=== PATIENT | female | born 1985 | race Caucasian/White ===

== ENCOUNTER 2022-01-01 15:32 | Emergency (ER) | payer BC ==
[2022-01-01 16:07] VITALS: RESP 16
--- NOTE | 2022-01-01 20:30 | ED ---
General Adult HPI - General Chief complaint: Recheck/Abnormal Lab/Rx Stated complaint: 24 wks preg, low hemoglobin, Mother Baby notified Time Seen by Provider: 01/01/22 19:49 Source: patient, RN notes reviewed Mode of arrival: ambulatory Limitations: no limitations - History of Present Illness Initial comments: This is a pleasant 36-year-old female who is 24 weeks . She was sent in by her lens edge grinder machine, Dr. Johns, for low hemoglobin. Patient states it was 7 at the office. Patient sent here for probable blood transfusion. Patient denying any pain but does have fatigue. Patient also easily winded with exertion. Denies any vaginal bleeding. No rectal bleeding. No easy bruising. No nosebleeds. Patient does have a history of anemia and cannot take iron supplementation because of her gastroesophageal reflux disease. Patient is angelina eduled later in the week for iron infusion. Patient can feel movements. She denies any vaginal discharge or vaginal leakage. No abdominal or pelvic pain. No headache, no fever or chills, no changes in vision or hearing, no sore throat or difficulty with speech, no neck pain, no chest pain or shortness of breath, no abdominal pain, no nausea or vomiting, no changes in urination or bowel m ovements, no numbness or tingling, no extremity pain, no skin rashes or lesions. Past medical, surgical, social, and family history reviewed. - Related Data Allergies Allergy/AdvReac Type Severity Reaction Status Date / Time butorphanol [From Stadol] Allergy Unknown Verified 01/01/22 16:07 diphenhydramine Allergy Unknown Verified 01/01/22 16:07 [From Benadryl] Review of Systems ROS Statement: Those systems with pertinent positive or pertinent negative responses have been documented in the HPI. ROS Other: All systems not noted in ROS Statement are negative. Past Medical History Additional Past Medical History / Comment(s): anemia, History of Any Multi-Drug Resistant Organisms: None Reported Past Surgical History: Breast Surgery Additional Past Surgical History / Comment(s): tumor removed from breast Past Psychological History: No Psychological Hx Reported Smoking Status: Never smoker Past Alcohol Use History: None Reported Past Drug Use History: None Reported General Exam - General Exam Comments Initial Comments: This is a pleasant 36-year-old female who appears to be in no distress at the time I'm seeing her. Patient does have a gravid uterus consistent with dates. Patient does have a bit of pallor. Capillary refill is less than 2 seconds. No mottling. Limitations: no limitations General appearance: alert, in no apparent distress Head exam: Present: atraumatic, normocephalic, normal inspection Eye exam: Present: normal appearance, PERRL, EOMI. Absent: scleral icterus, conjunctival injection, periorbital swelling ENT exam: Present: normal exam, normal oropharynx, mucous membranes moist, normal external ear exam. Absent: mucous membranes dry Neck exam: Present: normal inspection, full ROM. Absent: tenderness, meningismus, lymphadenopathy Respiratory exam: Present: normal lung sounds bilaterally. Absent: respiratory distress, wheezes, rales, rhonchi, stridor Cardiovascular Exam: Present: regular rate, normal rhythm, normal heart sounds. Absent: systolic murmur, diastolic murmur, rubs, gallop, clicks GI/Abdominal exam: Present: soft, normal bowel sounds, other (Gravid uterus, consistent with dates). Absent: distended, tenderness, guarding, rebound, rigid Extremities exam: Present: normal inspection, full ROM, normal capillary refill. Absent: tenderness, pedal edema, joint swelling, calf tenderness Back exam: Present: normal inspection Neurological exam: Present: alert, oriented X3, CN II-XII intact Psychiatric exam: Present: normal affect, normal mood Skin exam: Present: warm, dry, intact, normal color, pallor (Generalized). Absent: rash, cyanosis, diaphoretic, erythema, urticaria, vesicles, petechiae, mottled Course Vital Signs 01/01/22 01/01/22 01/01/22 16:04 22:40 22:52 Temperature 97.9 F 98.1 F 97.8 F Pulse Rate 91 81 80 Respiratory 16 16 16 Rate Blood Pressure 104/66 112/68 101/58 O2 Sat by Pulse 99 97 Oximetry 01/01/22 01/02/22 01/02/22 23:12 01:13 01:17 Temperature 97.5 F L 98.3 F 98.3 F Pulse Rate 80 65 65 Respiratory 16 16 16 Rate Blood Pressure 102/67 105/64 O2 Sat by Pulse 97 100 Oximetry - Consultations Consultation #1: Case was discussed in detail with the on-call lens edge grinder machine, Dr. Arana who was in contact with Dr. Johns. Apparently the patient's lens edge grinder machine, Dr. Johns, once the patient transfused with 1 unit packed red blood cells due to symptomatic anemia. [address] Johns. Medical Decision Making - Medical Decision Making Will recheck hemoglobin. Plan on transfusion. We'll touch base with the lens edge grinder machine. Patient received one unit of packed red blood cells as requested by Dr. Johns. Patient was hemodynamically stable at discharge. Patient has a follow-up appointment scheduled with your lens edge grinder machine on Thursday. All results discussed. Patient was told to return to the ER for any signs or symptoms worsen. Told to return immediately if any other problems arise. All questions answered. Treatment plan discussed. Patient in agreement Every effort has been made to ensure accuracy of this dictation. However, due to the limitations of electronic medical records and dictation devices, errors in charting still occur. The case was discussed in detail with ED attending physician. Presentation, findings, treatment plan discussed in detail. Pharmacist In Charge Owner Dr. Reyes - Lab Data Result diagrams: 01/01/22 20:00 01/01/22 20:00 Lab Results 01/01/22 01/01/22 01/01/22 Range/Units 20:00 20:00 20:00 WBC 14.5 H (3.8-10.6) k/uL RBC 3.39 L (3.80-5.40) m/uL Hgb 7.8 L (11.4-16.0) gm/dL Hct 25.4 L (34.0-46.0) % MCV 74.9 L (80.0-100.0) fL MCH 23.0 L (25.0-35.0) pg MCHC 30.8 L (31.0-37.0) g/dL RDW 14.7 (11.5-15.5) % Plt Count 542 H (150-450) k/uL MPV 6.9 Neutrophils % 75 % Lymphocytes % 17 % Monocytes % 4 % Eosinophils % 2 % Basophils % 0 % Neutrophils # 10.9 H (1.3-7.7) k/uL Lymphocytes # 2.5 (1.0-4.8) k/uL Monocytes # 0.5 (0-1.0) k/uL Eosinophils # 0.3 (0-0.7) k/uL Basophils # 0.0 (0-0.2) k/uL Hypochromasia Marked Microcytosis Slight Sodium 135 L (137-145) mmol/L Potassium 3.7 (3.5-5.1) mmol/L Chloride 106 (98-107) mmol/L Carbon Dioxide 19 L (22-30) mmol/L Anion Gap 10 mmol/L BUN 13 (7-17) mg/dL Creatinine 0.53 (0.52-1.04) mg/dL Est GFR (CKD-EPI)AfAm >90 (>60 ml/min/1.73 sqM) Est GFR (CKD-EPI)NonAf >90 (>60 ml/min/1.73 sqM) Glucose 94 (74-99) mg/dL Calcium 8.7 (8.4-10.2) mg/dL Total Bilirubin 0.3 (0.2-1.3) mg/dL AST 23 (14-36) U/L ALT 16 (4-34) U/L Alkaline Phosphatase 76 (38-126) U/L Total Protein 6.6 (6.3-8.2) g/dL Albumin 3.8 (3.5-5.0) g/dL Urine Color Urine Appearance (Clear) Urine pH (5.0-8.0) Ur Specific York (1.001-1.035) Urine Protein (Negative) Urine Glucose (UA) (Negative) Urine Ketones (Negative) Urine Blood (Negative) Urine Nitrite (Negative) Urine Bilirubin (Negative) Urine Urobilinogen (<2.0) mg/dL Ur Leukocyte Esterase (Negative) Blood Type O Positive Blood Type Confirm Blood Type Recheck No Previous Record Bld Type Recheck Status CABO Indicated Antibody Screen NEGATIVE Crossmatch See Detail Spec Expiration Date 01/04/2022 - 229901/01/22 01/01/22 Range/Units 20:05 20:06 WBC (3.8-10.6) k/uL RBC (3.80-5.40) m/uL Hgb (11.4-16.0) gm/dL Hct (34.0-46.0) % MCV (80.0-100.0) fL MCH (25.0-35.0) pg MCHC (31.0-37.0) g/dL RDW (11.5-15.5) % Plt Count (150-450) k/uL MPV Neutrophils % % Lymphocytes % % Monocytes % % Eosinophils % % Basophils % % Neutrophils # (1.3-7.7) k/uL Lymphocytes # (1.0-4.8) k/uL Monocytes # (0-1.0) k/uL Eosinophils # (0-0.7) k/uL Basophils # (0-0.2) k/uL Hypochromasia Microcytosis Sodium (137-145) mmol/L Potassium (3.5-5.1) mmol/L Chloride (98-107) mmol/L Carbon Dioxide (22-30) mmol/L Anion Gap mmol/L BUN (7-17) mg/dL Creatinine (0.52-1.04) mg/dL Est GFR (CKD-EPI)AfAm (>60 ml/min/1.73 sqM) Est GFR (CKD-EPI)NonAf (>60 ml/min/1.73 sqM) Glucose (74-99) mg/dL Calcium (8.4-10.2) mg/dL Total Bilirubin (0.2-1.3) mg/dL AST (14-36) U/L ALT (4-34) U/L Alkaline Phosphatase (38-126) U/L Total Protein (6.3-8.2) g/dL Albumin (3.5-5.0) g/dL Urine Color Yellow Urine Appearance Clear (Clear) Urine pH 6.0 (5.0-8.0) Ur Specific York 1.028 (1.001-1.035) Urine Protein Trace H (Negative) Urine Glucose (UA) Negative (Negative) Urine Ketones Negative (Negative) Urine Blood Negative (Negative) Urine Nitrite Negative (Negative) Urine Bilirubin Negative (Negative) Urine Urobilinogen <2.0 (<2.0) mg/dL Ur Leukocyte Esterase Negative (Negative) Blood Type Blood Type Confirm O Positive Blood Type Recheck Bld Type Recheck Status Antibody Screen Crossmatch Spec Expiration Date Disposition Clinical Impression: , Anemia affecting Narrative: Chronic iron deficiency anemia Disposition: HOME SELF-CARE Condition: Stable Instructions (If sedation given, give patient instructions): (ED), I waldo Rich Diet (ED) Additional Instructions: Follow-up with Dr. Johns. Follow-up with your regular physician as directed. Return to the ER immediately if any symptoms worsen, new symptoms arise, or any other problems develop. Is patient prescribed a controlled substance at d/c from ED?: No Referrals: Akosua Johns DO [Doctor of Osteopathic Medicine] - 1-2 days
[2022-01-01 20:34] LABS: Basophils % (A) 0 %; Eosinophils # (A) 0.3 k/uL (0-0.7); Eosinophils % (A) 2 %; HCT 25.4 % (34.0-46.0); HGB 7.8 gm/dL (11.4-16.0); Hypochromasia Marked; Lymphocytes # (A) 2.5 k/uL (1.0-4.8); Lymphocytes % (A) 17 %; MCHC 30.8 g/dL (31.0-37.0); MCV 74.9 fL (80.0-100.0); Mean Platelet Volume 6.9; Microcytosis Slight; Monocytes # (A) 0.5 k/uL (0-1.0); Monocytes % (A) 4 %; Neutrophils # (A) 10.9 k/uL (1.3-7.7); Neutrophils % (A) 75 %; Platelet Count 542 k/uL (150-450); RBC 3.39 m/uL (3.80-5.40); RDW 14.7 % (11.5-15.5); WBC 14.5 k/uL (3.8-10.6)
[2022-01-01 20:49] LABS: Appearance,Urine Clear (Clear); Bilirubin,Urine Negative (Negative); Blood,Urine Negative (Negative); Color,Urine Yellow; Glucose,Urine (UA) Negative (Negative); Ketones,Urine Negative (Negative); Leukocyte Esterase,Urine Negative (Negative); Nitrite,Urine Negative (Negative); Protein,Urine Trace (Negative); Specific Gravity,Urine 1.028 (1.001-1.035); Urobilinogen,Urine <2.0 mg/dL (<2.0)
[2022-01-01 20:58] LABS: ALT 16 U/L (4-34); AST 23 U/L (14-36); African American GFR (CKD) >90 (>60 ml/min/1.73 sqM); Albumin 3.8 g/dL (3.5-5.0); Alkaline Phosphatase 76 U/L (38-126); Anion Gap 10 mmol/L; Blood Urea Nitrogen 13 mg/dL (7-17); Calcium 8.7 mg/dL (8.4-10.2); Carbon Dioxide 19 mmol/L (22-30); Chloride 106 mmol/L (98-107); Glucose 94 mg/dL (74-99); Non-African American GFR(CKD) >90 (>60 ml/min/1.73 sqM); Potassium 3.7 mmol/L (3.5-5.1); Sodium 135 mmol/L (137-145); Total Bilirubin 0.3 mg/dL (0.2-1.3); Total Protein 6.6 g/dL (6.3-8.2)
[2022-01-02 01:17] VITALS: BP 105/64; PULSE 65; TEMP 98.3
== END 2022-01-02 01:17 | disposition home or self-care (01) ==
LOC: EC 15:32
DX: O99.011 Anemia complicating pregnancy, first trimester (principal); D64.9 Anemia, unspecified; Z88.8 Allergy status to other drugs, medicaments and biological substances; Z88.6 Allergy status to analgesic agent; Z3A.29 29 weeks gestation of pregnancy
CPT/HCPCS: 36415; 86900; 86901; 80053; 85025; 86850; 86920; 81003; 99283; P9016

== ENCOUNTER 2022-01-17 12:27 | Outpatient (CLI) | payer BC ==
[2022-01-17 16:31] VITALS: BP 106/58; RESP 16; TEMP 98.3
--- NOTE | 2022-01-18 09:13 | P.MSEPDOC ---
Presenting Problems - Arrival Data Date of Arrival on Unit: 01/17/22 Time of Arrival on Unit: 12:27 Mode of Transport: Wheelchair - Complaint OB-Reason for Admission/Chief Complaint: Other Comment: dizziness Medical History - Information : 4 Para: 1 Term: 1 : 0 Abortions: Spontaneous or Elective: 2 Number of Living Children: 1 - Gestational Age Gestational Age by PRERNA (wks/days): 26 Weeks and 6 Days Review of Systems - Review of Systems Constitutional: No problems Breast: No problems ENT: No problems Cardiovascular: No problems Respiratory: No problems Gastrointestinal: No problems Genitourinary: No problems Musculoskeletal: No problems Neurological: No problems Skin: No problems Vital Signs - Temperature Temperature: 98.3 F Temperature Source: Oral - Respirations Respiratory Rate: 16 Oxygen Delivery Method: Room Air O2 Sat by Pulse Oximetry: 98 - Blood Pressure Left Arm Blood Pressure: 106/58 Blood Pressure Mean: 74 Blood Pressure Source: Automatic Cuff Medical Screen Scoring - Assessment - Baby A Baseline FHR: 145 Heart Rate - NICHD Category: Category I (Normal) Physician Notification - Physician Notified Physician Notified Date: 01/17/22 Physician Notified Time: 13:10 Physician: Dr Arana New Order Received: Yes (discharge) Maternal Triage Index - Maternal Triage Index Presenting for scheduled procedure w/no complaint: No - Stat/Priority 1 Stat Priority 1: No - Urgent/Priority 2 Urgent Priority 2: No - Prompt/Priority 3 Prompt Priority 3: No - Non-Urgent/Priority 4 Non-Urgent Priority 4: Yes Criteria Met for Priority 4: presents with dizziness with know anemia after iron transfusion Disposition - Disposition OB Disposition: Discharge to home Discharge Date: 01/17/22 Discharge Time: 13:40 I agree with the RN Medical Screening Exam: Yes Case reviewed; plan agreed upon as documented in EMR&OBIX.: Yes Diagnosis: RELATED CONDITIONS, UNSPECIFIED, SECOND TRIMESTER (Patient presents to labor and delivery with complaints of general ill feeling, fatigue, dizziness while she was at the suede cleaner getting an iron infusion. This is been a chronic condition for this patient and it appears she has no new symptomatology. Patient's hemoglobin is already been checked and its good at 9.2. heart tones are reassuring. There is no evidence of maternal compromise at this time. Patient's felt be stable for discharge home follow up Dr. Johns in the next 2 weeks.)
== END 2022-01-17 13:40 | disposition home or self-care (01) ==
LOC: FBPOP 12:27
PROVIDERS: ATTEND Obstetrics & Gynecology
DX: O26.892 Other specified pregnancy related conditions, second trimester (principal); Z3A.26 26 weeks gestation of pregnancy; Z88.8 Allergy status to other drugs, medicaments and biological substances
CPT/HCPCS: 99213

== ENCOUNTER 2022-04-03 23:33 | Inpatient (IN) | payer BC ==
[2022-04-04] MEDS ORDERED: CITRIC ACID-SODIUM CITRATE 15 ML CUP PO ONE (00:06)
[2022-04-04 00:34] LABS: Glucose,Whole Blood 79 mg/dL (70-110)
[2022-04-04 00:42] LABS: Anisocytosis Moderate; Basophils % (A) 0 %; Eosinophils # (A) 0.2 k/uL (0-0.7); Eosinophils % (A) 2 %; HCT 36.3 % (34.0-46.0); Lymphocytes # (A) 2.2 k/uL (1.0-4.8); Lymphocytes % (A) 18 %; MCH 28.4 pg (25.0-35.0); MCHC 33.1 g/dL (31.0-37.0); MCV 85.7 fL (80.0-100.0); Mean Platelet Volume 8.1; Microcytosis Slight; Monocytes # (A) 0.7 k/uL (0-1.0); Monocytes % (A) 6 %; Neutrophils # (A) 8.9 k/uL (1.3-7.7); Neutrophils % (A) 73 %; Platelet Count 337 k/uL (150-450); RBC 4.24 m/uL (3.80-5.40); RDW 20.1 % (11.5-15.5); WBC 12.2 k/uL (3.8-10.6)
--- NOTE | 2022-04-04 00:49 | P.HPOB ---
History of Present Illness H&P Date: 04/04/22 Chief Complaint: Spontaneous rupture of membranes This is a 36-year-old female 4 para 1 with an EDC of 04/19/2022, estimated gestational age of 38 weeks, who presents with complaints of spontaneous rupture of membranes with clear fluid noted at approximately 11:15 PM on 04/03/2022. She is feeling mild contractions at this time. care has been with Dr. Johns and has been complicated by low iron and low blood sugar. She has had a total of 10 iron infusions and one unit of blood. She also takes Zofran for nausea. She is a planned scheduled primary section due to macrosomia on recent ultrasound on 1227 showing estimated weight of 9 pounds with greater than 90th percentile. She did discuss this with Dr. Johns in the head plan for primary section for prevention of shoulder dystocia. labs: Hepatitis B surface antigen-negative RPR-nonreactive Rubella-immune Blood type-O+ Antibody screen-negative HIV-nonreactive Hemoglobin-10.4 Random glucose-72 Maternity 21-negative One hour Glucola-100, hemoglobin at that time was 7 Group B streptococcus-negative Obstetrical history: . History of 2 terminations of . History of 1 vaginal delivery at 39 weeks with a weight of 6 lbs. 11 oz. 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 Social history: . Works from home. Review of Systems Constitutional: Denies chills, Denies fever Eyes: denies blurred vision, denies pain Ears, nose, mouth and throat: Denies headache, Denies sore throat Cardiovascular: Denies chest pain, Denies shortness of breath Respiratory: Denies cough Gastrointestinal: Reports abdominal pain (Contractions), Reports heartburn, Reports nausea Genitourinary: Reports pelvic pain, Reports , Reports vaginal discharge (Rupture of membranes with clear fluid) Musculoskeletal: Reports low back pain Integumentary: Denies pruritus, Denies rash Neurological: Denies numbness, Denies weakness Psychiatric: Denies anxiety, Denies depression Past Medical History Past Medical History: GERD/Reflux, Hyperlipidemia Additional Past Medical History / Comment(s): Iron deficiency anemia-required iron transfusions during this , hypoglycemia History of Any Multi-Drug Resistant Organisms: None Reported Past Surgical History: Breast Surgery Additional Past Surgical History / Comment(s): Benign tumor removed from breast, wisdom teeth Past Anesthesia/Blood Transfusion Reactions: No Reported Reaction Past Psychological History: No Psychological Hx Reported Smoking Status: Never smoker Past Alcohol Use History: None Reported Past Drug Use History: None Reported - Past Family History Father Family Medical History: Hypertension Mother Family Medical History: Cancer (Thyroid cancer) Brother(s) Additional Family Medical History / Comment(s): Ulcerative colitis Medications and Allergies Home Medications Medication Instructions Recorded Confirmed Type Ascorbic Acid [Vitamin C chew] 1,000 mg PO DAILY 01/13/22 04/03/22 History Biotin [Biotin Disolve] 5,000 mcg PO DAILY 01/13/22 04/03/22 History Pantoprazole [Protonix] 40 mg PO DAILY 01/13/22 04/03/22 History Vit No.179/Iron/Folic 1 each PO DAILY 01/13/22 04/03/22 History [ Tablet] Allergies Allergy/AdvReac Type Severity Reaction Status Date / Time butorphanol [From Stadol] Allergy Hallucinati Verified 04/03/22 23:55 ons diphenhydramine Allergy Hallucinati Verified 04/03/22 23:55 [From Benadryl] ons Exam Osteopathic Statement: *. No significant issues noted on an osteopathic structural exam other than those noted in the History and Physical/Consult. Intake and Output 04/03/22 04/03/22 04/04/22 14:59 22:59 06:59 Other: Weight 69.4 kg HEENT: Within normal limits Heart: Regular rate and rhythm Lungs clear to auscultation bilaterally Abdomen: Cervix: 1-1/2/thick/-2, positive amnisure with clear fluid noted heart tones: Category 1, reactive Contractions: Every 2-4 minutes, mild Extremities: Negative Homans Assessment and Plan (1) 38 weeks gestation of Current Visit: Yes Status: Acute Code(s): Z3A.38 - 38 WEEKS GESTATION OF SNOMED Code(s): 54015961 (2) Macrosomia affecting management of mother in third trimester, single gestation Current Visit: Yes Status: Acute Code(s): O36.63X0 - MATERNAL CARE FOR EXCESS GROWTH, THIRD TRIMESTER, UNSP SNOMED Code(s): 776161859 Plan: Admission for primary section. Patient did eat some toast with some butter and therefore will try to wait closer to 8 hours before performing as long as she is not going into active labor. Will check blood sugar and CBC. Patient states she is unable to take oral medications for pain at all due to her GERD. Advised I will try to make her as comfortable as possible with IV medications immediately following surgery. I have discussed the risks, benefits, and alternative therapies for the above- mentioned procedure and for both sedation/anesthesia as well as necessary blood products administration, if indicated, as they pertain to this patient. The patient has indicated her understanding and acceptance of the risks and procedures discussed.
[2022-04-04] MEDS: LACTATED RINGERS 1,000 ML IV SCH ×3 (01:38→19:44)
[2022-04-04] MEDS ORDERED: fentaNYL (PF) 50 MCG/ML 2 ML AMP ONE (04:36)
[2022-04-04] MEDS ORDERED: OXYTOCIN 30 UNITS/500 ML NS BAG IV ONE (04:36)
[2022-04-04] MEDS ORDERED: KETOROLAC 15 MG/ML 1 ML VIAL ONE (04:36)
[2022-04-04] MEDS ORDERED: ONDANSETRON 4 MG/2 ML VIAL ONE (04:36)
[2022-04-04] MEDS ORDERED: MORPHINE SULFATE (PF) 0.3 MG/0.3 ML SYR ONE (04:36)
[2022-04-04] MEDS ORDERED: NALBUPHINE 10 MG/ML (1 ML AMP) ONE (04:36)
[2022-04-04] MEDS ORDERED: ePHEDrine 50 MG/ML 1 ML VIAL ONE (04:36)
--- NOTE | 2022-04-04 05:35 | P.OP ---
Date of Procedure: 04/04/22 Preoperative Diagnosis: 1. Intrauterine at 38-0/7 weeks. 2. Suspected macrosomia. 3. Active labor. Postoperative Diagnosis: Same Procedure(s) Performed: Primary low transverse section Anesthesia: spinal (Duramorph) Surgeon: Rosemary Real Hand Candy Cutter #1: Akosua Johns Estimated Blood Loss (ml): 500 Pathology: none sent Condition: stable Disposition: floor Indications for Procedure: This is a 36-year-old female 4 para 1 at 38-0/7 weeks who presented with spontaneous rupture of membranes. She then progressed into active labor. She was a planned section for macrosomia. I have discussed the risks, benefits, and alternative therapies for the above- mentioned procedure and for both sedation/anesthesia as well as necessary blood products administration, if indicated, as they pertain to this patient. The patient has indicated her understanding and acceptance of the risks and procedures discussed. Operative Findings: A viable male is noted in the vertex presentation with scores of 9 at 1 minute and 9 at 5 minutes and infant weight of 8 lbs. 3 oz. Normal uterus tubes and ovaries are noted. Description of Procedure: The patient is taken to the operating room where she is placed in the dorsal supine position with leftward tilt after spinal Duramorph anesthesia is given. She is prepped and draped in the normal sterile fashion. Skin was tested and found to be adequately anesthetized. A Pfannenstiel skin incision was made with a scalpel. A second knife was used to carry the incision down to the underlying layer of fascia. The fascia was nicked in the midline with a scalpel and then extended laterally bilaterally with Fernandez scissors. The anterior lip of the fascia was grasped with 2 Gurpreet clamps and then dissected off the underlying rectus muscle in the midline with Fernandez scissors. The inferior aspect of the fascial incision was grasped with 2 Gurpreet clamps and dissected off the underlying rectus muscle and the midline with Fernandez scissors. Next the peritoneum layer was tented up with 2 hemostats and then entered sharply with the scalpel. The incision is extended superiorly and inferiorly with Metzenbaum scissors. Next a DeLee retractor is placed. The vesicouterine peritoneum is entered sharply with Metzenbaum scissors and extended laterally bilaterally with Metzenbaum scissors and then the bladder flap is pushed inferiorly. The lower uterine segment is incised in transverse fashion with the scalpel and then bluntly entered with a hemostat. Clear fluid is noted. The incision was then extended laterally bilaterally with 2 fingers. Next the infant's head is delivered through the incision. Nose and mouth are bulb suctioned. The remainder of the infant is easily delivered and placed on mother's abdomen. Cord is clamped and cut. Infant is taken to warmer by nursing staff. Uterine fundus is gently massaged and placenta is delivered manually. Uterus is exteriorized and cleared of all clots and debris. Uterine incision is closed with 0 Vicryl suture in a running locked fashion. A second layer of 0 Vicryl suture is used in a running fashion for hemostasis. Once adequate hemostasis as assured, the vesicouterine peritoneum is reapproximated with 2-0 Vicryl suture in a running fashion. Posterior cul-de-sac is suctioned of all clots and debris. Uterus is returned to the abdomen. Incision is noted to be hemostatic. Peritoneal layer is closed with 0 Vicryl suture in a running fashion. Muscle layer is reapproximated with 0 Vicryl suture in interrupted fashion. Fascia layer is then closed with 0 PDS suture with 2 sutures meeting in the midline and the knots buried in either side and in the midline. The subcutaneous tissue was then closed with 2-0 Vicryl suture. Skin layer was then closed with ba. All sponge and needle counts are correct. The patient is taken to recovery room in stable condition.
[2022-04-04] MEDS ORDERED: LANOLIN CREAM 5 GM TUBE TOPICAL PRN (06:20)
[2022-04-04] MEDS ORDERED: OXYTOCIN 30 UNITS/500 ML NS 30 UNIT in SALINE 1 500ML.BAG IV SCH (06:20)
[2022-04-04] MEDS ORDERED: ZOLPIDEM 5 MG TAB PO PRN (06:20)
[2022-04-04] MEDS ORDERED: METOCLOPRAMIDE 5 MG/ML 2 ML VIAL IVP PRN (06:20)
[2022-04-04] MEDS ORDERED: HYDROmorphone 1 MG/ML 1 ML SYRINGE IVP PRN (06:20)
[2022-04-04] MEDS ORDERED: HYDROmorphone 0.5 MG/0.5 ML SYRINGE IVP PRN (06:20)
[2022-04-04] MEDS ORDERED: SIMETHICONE 80 MG CHEWABLE PO PRN (06:20)
[2022-04-04] MEDS ORDERED: NALOXONE 0.4 MG/ML 1 ML VIAL IV PRN (06:20)
[2022-04-04] MEDS: ACETAMINOPHEN IV (For NPO) 1,000 MG in EMPTY BAG 1 BAG IVPB SCH ×2 (08:16→21:17)
[2022-04-04] MEDS ORDERED: NON FORMULARY DRUG (Biotin [Biotin Disolve] 5,000 MCG Tablet) PO SCH (09:00)
[2022-04-04] MEDS: ONDANSETRON 4 MG/2 ML VIAL IVP PRN ×2 (09:10→16:15)
[2022-04-04] MEDS ORDERED: ONDANSETRON 4 MG/2 ML VIAL IVP PRN (16:10)
[2022-04-04] MEDS: PANTOPRAZOLE 40 MG TABLET PO SCH (21:16)
[2022-04-04] MEDS: SENNOSIDES-DOCUSATE SODIUM 1 EACH TAB PO SCH (21:16)
[2022-04-04] MEDS: KETOROLAC 15 MG/ML 1 ML VIAL IVP SCH (21:17)
[2022-04-04] MEDS: PRENATAL VIT-IRON-FOLIC ACID 1 EACH TABLET PO SCH (21:17)
[2022-04-04] MEDS: ASCORBIC ACID 500 MG TAB PO SCH (21:17)
[2022-04-05] MEDS: KETOROLAC 15 MG/ML 1 ML VIAL IVP SCH ×2 (00:54→07:59)
[2022-04-05 06:23] LABS: Anisocytosis Moderate; Basophils % (A) 0 %; Eosinophils % (A) 0 %; HCT 31.8 % (34.0-46.0); HGB 10.6 gm/dL (11.4-16.0); Lymphocytes # (A) 1.4 k/uL (1.0-4.8); Lymphocytes % (A) 9 %; MCHC 33.3 g/dL (31.0-37.0); MCV 87.1 fL (80.0-100.0); Mean Platelet Volume 8.2; Microcytosis Slight; Monocytes # (A) 0.8 k/uL (0-1.0); Monocytes % (A) 5 %; Neutrophils # (A) 12.9 k/uL (1.3-7.7); Neutrophils % (A) 84 %; Platelet Count 299 k/uL (150-450); RBC 3.65 m/uL (3.80-5.40); WBC 15.3 k/uL (3.8-10.6)
--- NOTE | 2022-04-05 07:25 | P.PNOBGPC ---
Subjective - Subjective Principal diagnosis: status post primary low transverse postop day 1 Interval history: patient seen and examined. Denies nausea, vomiting, chest pain, shortness of breath or calf pain. Patient reports: Reports appetite normal, Reports voiding normally, Reports pain well controlled, Reports ambulating normally : doing well Objective - Vital Signs Latest vital signs: Vital Signs Temp Pulse Resp BP Pulse Ox 04/05/22 04:00 98.4 F 80 14 115/74 96 04/05/22 00:00 98 F 72 16 110/68 96 04/04/22 19:46 98.4 F 71 16 112/69 96 04/04/22 15:11 97.7 F 66 16 120/68 96 04/04/22 11:40 97.8 F 64 16 133/77 04/04/22 07:54 97.6 F 75 16 112/60 04/04/22 07:42 97.6 F 78 16 112/60 96 Intake and Output 04/04/22 04/05/22 04/05/22 22:59 06:59 14:59 Output Total 1200 Balance -1200 Output: Urine 1200 Uretheral (Barton) 400 Other: # Voids 1 1 - Exam Lungs: bilateral: normal Chest: Normal S1, Normal S2 Extremities: Present: normal Abdomen: Present: normal appearance, soft. Absent: distention, tenderness Incision: Present: normal, dry, intact Uterus: Present: normal, firm - Labs Labs: Abnormal Lab Results - Last 24 Hours (Table) 04/05/22 Range/Units 05:13 WBC 15.3 H (3.8-10.6) k/uL RBC 3.65 L (3.80-5.40) m/uL Hgb 10.6 L (11.4-16.0) gm/dL Hct 31.8 L (34.0-46.0) % RDW 20.0 H (11.5-15.5) % Neutrophils # 12.9 H (1.3-7.7) k/uL Assessment and Plan (1) Status post primary low transverse section Current Visit: Yes Status: Acute Code(s): Z98.891 - HISTORY OF UTERINE SCAR FROM PREVIOUS SURGERY SNOMED Code(s): 343193810 Plan: 1. Increase ambulation 2. By mouth pain medication 3. Regular diet
[2022-04-05] MEDS: LACTATED RINGERS 1,000 ML IV SCH (07:58)
[2022-04-05] MEDS: ASCORBIC ACID 500 MG TAB PO SCH (08:05)
[2022-04-05] MEDS: IBUPROFEN 600 MG TAB PO SCH ×2 (08:05→19:21)
[2022-04-05] MEDS: SENNOSIDES-DOCUSATE SODIUM 1 EACH TAB PO SCH ×2 (08:05→19:21)
[2022-04-05] MEDS: PRENATAL VIT-IRON-FOLIC ACID 1 EACH TABLET PO SCH (08:05)
[2022-04-05] MEDS: PANTOPRAZOLE 40 MG TABLET PO SCH (08:05)
[2022-04-05] MEDS: ACETAMINOPHEN TAB 500 MG TAB PO SCH ×3 (12:17→22:46)
[2022-04-05] MEDS: ACETAMINOPHEN SUPPOSITORY 650 MG SUPP RECTAL PRN ×2 (16:30→23:01)
[2022-04-05 23:39] VITALS: RESP 16
[2022-04-06] MEDS: IBUPROFEN 600 MG TAB PO SCH ×2 (02:12→08:13)
[2022-04-06] MEDS: ACETAMINOPHEN TAB 500 MG TAB PO SCH (04:21)
[2022-04-06] MEDS: ACETAMINOPHEN SUPPOSITORY 650 MG SUPP RECTAL PRN (05:13)
[2022-04-06 08:11] VITALS: BP 120/82; PULSE 73; TEMP 97.9
[2022-04-06] MEDS: SENNOSIDES-DOCUSATE SODIUM 1 EACH TAB PO SCH (08:13)
[2022-04-06] MEDS: PANTOPRAZOLE 40 MG TABLET PO SCH (08:13)
--- NOTE | 2022-04-06 08:16 | P.PN ---
Progress Note - Text Date: 04/05/2022 Time: 07:49 The patient is status post section Vital signs stable VAS: 0-10 Patient has no complaints of pain. The patient incurred some minimal itching yesterday, this itching is now subsiding. She also had some nausea that is also now subsiding. Pain meds to be managed by service.
--- NOTE | 2022-04-06 08:57 | P.DS ---
Providers Date of admission: 04/04/22 00:05 Expected date of discharge: 04/06/22 Attending physician: Akosua Johns Primary care physician: Stated None - Discharge Diagnosis(es) (1) Status post primary low transverse section Current Visit: Yes Status: Acute Hospital Course: Seen and examined. Denies nausea, vomiting, chest pain, shortness of breath or calf pain. She has struggled with pain control but has also refused to take pain medication. She has taken Tylenol rectal suppositories which have been helpful. She is passing flatus and tolerating regular diet. Patient will be discharged home post operative day #2 in stable condition to follow-up with me in one week. Plan - Discharge Summary New Discharge Prescriptions: New RX: Acetaminophen Suppository [Tylenol Suppository] 650 mg RECTAL Q6HR PRN #30 suppositor PRN Reason: Fever And/ Or Pain No Action Vit No.179/Iron/Folic [ Tablet] 1 each PO DAILY Pantoprazole [Protonix] 40 mg PO DAILY Ascorbic Acid [Vitamin C chew] 1,000 mg PO DAILY Biotin [Biotin Disolve] 5,000 mcg PO DAILY Discharge Medication List Ascorbic Acid [Vitamin C chew] 1,000 mg PO DAILY 01/13/22 [History] Biotin [Biotin Disolve] 5,000 mcg PO DAILY 01/13/22 [History] Pantoprazole [Protonix] 40 mg PO DAILY 01/13/22 [History] Vit No.179/Iron/Folic [ Tablet] 1 each PO DAILY 01/13/22 [History] RX: Acetaminophen Suppository [Tylenol Suppository] 650 mg RECTAL Q6HR PRN #30 suppositor 04/06/22 [Rx] Follow up Appointment(s)/Referral(s): Akosua Johns DO [Doctor of Osteopathic Medicine] - 05/14/22 3:45 pm (Post Op Appointment 04-14-2022 at 1:30) Discharge Disposition: HOME SELF-CARE
[2022-04-06] MEDS: ASCORBIC ACID 500 MG TAB PO SCH (09:00)
[2022-04-06] MEDS: PRENATAL VIT-IRON-FOLIC ACID 1 EACH TABLET PO SCH (09:00)
== END 2022-04-06 11:30 | disposition home or self-care (01) | DRG 788 ==
LOC: FBPOP 23:33 → 4FBP 04-04 00:05
PROVIDERS: ADMIT Obstetrics & Gynecology; ATTEND Obstetrics & Gynecology
PROC: 10D00Z1 Extraction of Products of Conception, Low, Open Approach (ICD-10-PCS; principal; 2022-04-04 06:30)
DX: O75.82 Onset (spontaneous) of labor after 37 completed weeks of gestation but before 39 completed weeks gestation, with delivery by (planned) cesarean section (principal); D50.9 Iron deficiency anemia, unspecified; Z28.310 Unvaccinated for COVID-19; O36.63X0 Maternal care for excessive fetal growth, third trimester, not applicable or unspecified; O99.02 Anemia complicating childbirth; O99.62 Diseases of the digestive system complicating childbirth; O99.284 Endocrine, nutritional and metabolic diseases complicating childbirth; K21.9 Gastro-esophageal reflux disease without esophagitis; Z3A.38 38 weeks gestation of pregnancy; Z37.0 Single live birth; E16.2 Hypoglycemia, unspecified; Z79.899 Other long term (current) drug therapy; E78.5 Hyperlipidemia, unspecified; Z88.4 Allergy status to anesthetic agent; Z88.8 Allergy status to other drugs, medicaments and biological substances
CPT/HCPCS: 59025; 84112; 85025; 86850; 86900; 86901; 99213

== ENCOUNTER 2023-10-20 18:27 | Emergency (ER) | payer BC ==
[2023-10-20 18:42] VITALS: BP 116/78; PULSE 100; RESP 18; TEMP 101.1
--- NOTE | 2023-10-20 19:35 | ED ---
Fever HPI - General Chief Complaint: Fever Stated Complaint: Breast pain Time Seen by Provider: 10/20/23 19:34 Source: patient, RN notes reviewed Mode of arrival: ambulatory Limitations: no limitations - History of Present Illness Initial Comments: 38-year-old female presented to ER with a chief complaint of bilateral breast pain. Patient has a history of mastitis and is currently weaning her child off of breast-feeding. Patient was sent by urgent care due to a fever of 103. Patient states bilateral breasts are tender, warm and mildly red. He states that been ongoing for approximately 1 day. Denies nipple discharge. She does report mild fevers at home. Denies any other complaints. - Related Data Home Medications Medication Instructions Recorded Confirmed Ascorbic Acid [Vitamin C chew] 1,000 mg PO DAILY 01/13/22 12/31/22 Biotin [Biotin Disolve] 5,000 mcg PO DAILY 01/13/22 12/31/22 Pantoprazole [Protonix] 40 mg PO DAILY 01/13/22 12/31/22 Vit No.179/Iron/Folic 1 each PO DAILY 01/13/22 12/31/22 [ Tablet] Loratadine [Claritin] 10 mg PO DAILY 12/24/22 12/31/22 Previous Rx's Medication Instructions Recorded Dicloxacillin [Dynapen] 500 mg PO Q6H 10 Days #40 capsule 10/20/23 Fluconazole [Diflucan] 150 mg PO ONCE #1 tab 10/20/23 Allergies Allergy/AdvReac Type Severity Reaction Status Date / Time butorphanol [From Stadol] Allergy Hallucinati Verified 10/20/23 18:42 ons diphenhydramine Allergy Hallucinati Verified 10/20/23 18:42 [From Benadryl] ons Review of Systems ROS Statement: Those systems with pertinent positive or pertinent negative responses have been documented in the HPI. ROS Other: All systems not noted in ROS Statement are negative. Past Medical History Past Medical History: GERD/Reflux, Hyperlipidemia Additional Past Medical History / Comment(s): Iron deficiency anemia-required iron transfusions during this , hypoglycemia History of Any Multi-Drug Resistant Organisms: None Reported Past Surgical History: Breast Surgery, Section Additional Past Surgical History / Comment(s): Benign tumor removed from breast, wisdom teeth, mar 2022 Past Anesthesia/Blood Transfusion Reactions: No Reported Reaction Past Psychological History: No Psychological Hx Reported Smoking Status: Never smoker - Past Family History Father Family Medical History: Hypertension Mother Family Medical History: Cancer Brother(s) Additional Family Medical History / Comment(s): Ulcerative colitis General Exam - General Exam Comments Initial Comments: Visual Physical Exam Vital signs reviewed General: Well-appearing, nontoxic, no acute distress. Head: Normocephalic, atraumatic Eyes: PERRLA, EOMI ENT: Airway patent Chest: Nonlabored breathing Skin: No visual rash, normal skin tone Neuro: Alert and oriented 3 Musculoskeletal: No gross abnormalities Limitations: no limitations General appearance: alert, in no apparent distress Respiratory exam: Present: normal lung sounds bilaterally. Absent: respiratory distress, wheezes, rales, rhonchi, stridor Cardiovascular Exam: Present: regular rate, normal rhythm, normal heart sounds. Absent: systolic murmur, diastolic murmur, rubs, gallop, clicks Neurological exam: Present: alert, oriented X3, CN II-XII intact Skin exam: Present: warm, dry, intact, normal color. Absent: rash Course Vital Signs 10/20/23 18:38 Temperature 101.1 F H Pulse Rate 100 Respiratory 18 Rate Blood Pressure 116/78 O2 Sat by Pulse 97 Oximetry Medical Decision Making - Medical Decision Making I performed the quick note portion of this chart. Electronically signed by Charles Emmanuel PA-C Was pt. sent in by a medical professional or institution (FAISAL Apodaca, PUBLISHER ASSISTANT, urgent care, hospital, or assisted...) When possible be specific @ -Yes, patient sent by urgent care for evaluation of bilateral breast pain and fever. Did you speak to anyone other than the patient for history (EMS, parent, family, police, friend...)? What history was obtained from this source @ -No Did you review nursing and triage notes (agree or disagree)? Why? @ -I reviewed and agree with nursing and triage notes Were old charts reviewed (outside hosp., previous admission, EMS record, old EKG, old radiological studies, urgent care reports/EKG's, assisted records)? Report findings @ -No old charts were reviewed Differential Diagnosis (chest pain, altered mental status, abdominal pain women, abdominal pain men, vaginal bleeding, weakness, fever, dyspnea, syncope, headache, dizziness, GI bleed, back pain, seizure, CVA, palpatations, mental health, musculoskeletal)? @ -Cellulitis, abscess, abrasion, mastitis This list is not meant to be all- inclusive. EKG interpreted by me (3pts min.). @ -None X-rays interpreted by me (1pt min.). @ -None done CT interpreted by me (1pt min.). @ -None done U/S interpreted by me (1pt. min.). @ -Bilateral breast ultrasound concerning of mastitis. What testing was considered but not performed or refused? (CT, X-rays, U/S, labs)? Why? @ -None What meds were considered but not given or refused? Why? @ -None Did you discuss the management of the patient with other professionals (professionals i.e. , PA, PUBLISHER ASSISTANT, lab, RT, psych nurse, social work specialist, metal precision machine assembler, teacher, collection officer, egg caser)? Give summary @ -No Was smoking cessation discussed for >3mins.? @ -No Was critical care preformed (if so, how long)? @ -No Were there social determinants of health that impacted care today? How? (Homelessness, low income, unemployed, alcoholism, drug addiction, transportation, low edu. Level, literacy, decrease access to med. care, senior living, rehab)? @ -No Was there de-escalation of care discussed even if they declined (Discuss DNR or withdrawal of care, Hospice)? DNR status @ -No What co-morbidities impacted this encounter? (DM, HTN, Smoking, COPD, CAD, Cancer, CVA, ARF, Chemo, Hep., AIDS, mental health diagnosis, sleep apnea, morbid obesity)? @ -None Was patient admitted / discharged? Hospital course, mention meds given and route, prescriptions, significant lab abnormalities, going to OR and other pertinent info. @ -Discharge. 38-year-old female presented to the ER with a chief complaint of bilateral breast pain. History and physical exam completed. Vitals remarkable for a temperature of 101 upon arrival otherwise unremarkable. Patient in no signs of acute distress and nontoxic-appearing. Laboratory studies obtained unremarkable. Ultrasound of bilateral breast concerning of mastitis. Radiology also advised on mammogram follow-up. Patient received by mouth Tylenol for fever control in the ER. Results discussed with patient, all questions answered. Patient will be started on Dicloxacillin, first dose in the ER. 1 dose of fluconazole also prescribed as patient reports she frequently gets yeast infections from antibiotic use. Advised strict follow-up with PCP. Return parameters discussed. Patient discharged in stable condition. Patient verbally stressed understanding agree with care plan. Case discussed with ED attending, Dr. Sams. Undiagnosed new problem with uncertain prognosis? @ -No Drug Therapy requiring intensive monitoring for toxicity (Heparin, Nitro, Insulin, Cardizem)? @ -No Were any procedures done? @ -No Diagnosis/symptom? @ -Mastitis Acute, or Chronic, or Acute on Chronic? @ -Acute Uncomplicated (without systemic symptoms) or Complicated (systemic symptoms)? @ -Uncomplicated Side effects of treatment? @ -No Exacerbation, Progression, or Severe Exacerbation? @ -No Poses a threat to life or bodily function? How? (Chest pain, [place], [place], pneumonia, PE, COPD, DKA, ARF, appy, cholecystitis, CVA, Diverticulitis, Homicidal, Suicidal, threat to staff... and all critical care pts) @ -No - Lab Data Result diagrams: 10/20/23 20:14 10/20/23 20:14 Lab Results 10/20/23 10/20/23 10/20/23 Range/Units 20:14 20:14 20:14 WBC 9.0 (3.8-10.6) k/uL RBC 4.66 (3.80-5.40) m/uL Hgb 14.0 (11.4-16.0) gm/dL Hct 44.0 (34.0-46.0) % MCV 94.5 (80.0-100.0) fL MCH 30.2 (25.0-35.0) pg MCHC 31.9 (31.0-37.0) g/dL RDW 13.1 (11.5-15.5) % Plt Count 336 (150-450) k/uL MPV 7.7 Neutrophils % 84 % Lymphocytes % 7 % Monocytes % 7 % Eosinophils % 2 % Basophils % 0 % Neutrophils # 7.5 (1.3-7.7) k/uL Lymphocytes # 0.6 L (1.0-4.8) k/uL Monocytes # 0.6 (0-1.0) k/uL Eosinophils # 0.2 (0-0.7) k/uL Basophils # 0.0 (0-0.2) k/uL Sodium 140 (137-145) mmol/L Potassium 4.1 (3.5-5.1) mmol/L Chloride 106 (98-107) mmol/L Carbon Dioxide 24 (22-30) mmol/L Anion Gap 10 mmol/L BUN 15 (7-17) mg/dL Creatinine 0.50 L (0.52-1.04) mg/dL Est GFR (CKD-EPI)AfAm >90 (>60 ml/min/1.73 sqM) Est GFR (CKD-EPI)NonAf >90 (>60 ml/min/1.73 sqM) Glucose 87 (74-99) mg/dL Plasma Lactic Acid Mehdi 0.7 (0.7-2.0) mmol/L Calcium 10.0 (8.4-10.2) mg/dL Total Bilirubin 0.4 (0.2-1.3) mg/dL AST 24 (14-36) U/L ALT 18 (4-34) U/L Alkaline Phosphatase 62 (38-126) U/L Total Protein 8.1 (6.3-8.2) g/dL Albumin 5.3 H (3.5-5.0) g/dL - Radiology Data Radiology results: image reviewed (Results called from ultrasound) Disposition Clinical Impression: Mastitis Disposition: HOME SELF-CARE Condition: Stable Instructions (If sedation given, give patient instructions): Mastitis (ED) Additional Instructions: Please take [id number] Tylenol and Motrin for fever and pain control. Complete full course of Dicloxacillin. Recommend follow-up with mammogram. Follow-up with PCP. Return to the ER for any new or worsening concerns. Prescriptions: Fluconazole [Diflucan] 150 mg PO ONCE #1 tab Dicloxacillin [Dynapen] 500 mg PO Q6H 10 Days #40 capsule Is patient prescribed a controlled substance at d/c from ED?: No Referrals: Reji Apple MD [Primary Care Provider] - 1-2 days Time of Disposition: 22:32
[2023-10-20 20:38] LABS: Basophils % (A) 0 %; Eosinophils # (A) 0.2 k/uL (0-0.7); Eosinophils % (A) 2 %; Lymphocytes # (A) 0.6 k/uL (1.0-4.8); Lymphocytes % (A) 7 %; MCH 30.2 pg (25.0-35.0); MCHC 31.9 g/dL (31.0-37.0); MCV 94.5 fL (80.0-100.0); Mean Platelet Volume 7.7; Monocytes # (A) 0.6 k/uL (0-1.0); Monocytes % (A) 7 %; Neutrophils # (A) 7.5 k/uL (1.3-7.7); Neutrophils % (A) 84 %; Platelet Count 336 k/uL (150-450); RBC 4.66 m/uL (3.80-5.40); RDW 13.1 % (11.5-15.5)
[2023-10-20 20:55] LABS: ALT 18 U/L (4-34); AST 24 U/L (14-36); African American GFR (CKD) >90 (>60 ml/min/1.73 sqM); Albumin 5.3 g/dL (3.5-5.0); Alkaline Phosphatase 62 U/L (38-126); Anion Gap 10 mmol/L; Blood Urea Nitrogen 15 mg/dL (7-17); Carbon Dioxide 24 mmol/L (22-30); Chloride 106 mmol/L (98-107); Glucose 87 mg/dL (74-99); Non-African American GFR(CKD) >90 (>60 ml/min/1.73 sqM); Potassium 4.1 mmol/L (3.5-5.1); Sodium 140 mmol/L (137-145); Total Bilirubin 0.4 mg/dL (0.2-1.3); Total Protein 8.1 g/dL (6.3-8.2)
[2023-10-20] MEDS: DICLOXACILLIN 250 MG CAPSULE PO STA (23:07)
[2023-10-20] MEDS: ACETAMINOPHEN TAB 325 MG TAB PO STA (23:08)
--- NOTE | 2023-10-21 12:03 | USB ---
Reason for Exam: Clinical finding. Risk Values: Jennifer 5 year model risk: 0.4%. NCI Lifetime model risk: 6.7%. Findings: The retroareolar of both breasts was scanned. A complete US of the retro-areolar region was done. Ductal ectasia noted bilaterally with possible hypervascularity of the left retroareolar region greater than right. No organizing fluid collections. Overall Assessment: Benign, BI-RAD 2 Management: Screening Mammogram of both breasts. Clinical Management of both breasts. Clinical management for patient's suggesting mastoiditis. Start routine screening mammogram. A clinical breast exam by your physician is recommended on an annual basis and results should be correlated with mammographic findings. This exam should not preclude additional follow-up of suspicious palpable abnormalities. Results were given to the patient verbally at the time of exam. Electronically signed and approved by: Brenton Garcia DO
== END 2023-10-20 23:11 | disposition home or self-care (01) ==
LOC: EC 18:27
DX: N61.0 Mastitis without abscess (principal); Z88.5 Allergy status to narcotic agent; Z88.8 Allergy status to other drugs, medicaments and biological substances
CPT/HCPCS: 36415; 80053; 83605; 85025; 99283; 99284

== ENCOUNTER 2023-10-21 13:18 | Emergency (ER) | payer BC ==
[2023-10-21] MEDS: methylPREDNISolone SOD SUCCI 125 MG/2 ML VIAL IM ONE (15:55)
[2023-10-21] MEDS: FAMOTIDINE 20 MG TAB PO STA (15:55)
[2023-10-21] MEDS: LORATADINE 10 MG TAB PO STA (15:55)
--- NOTE | 2023-10-21 16:08 | ED ---
General Adult HPI - General Chief complaint: Allergic Reaction Stated complaint: allergic reaction Time Seen by Provider: 10/21/23 13:26 Source: patient, RN notes reviewed Mode of arrival: ambulatory Limitations: no limitations - History of Present Illness Initial comments: 38-year-old female presents to the emergency department for evaluation of potent ial allergic reaction. Patient states that she was started on dicloxacillin yesterday for mastitis. She states that she has taken 3 doses thus far. She states that she noticed some itching throughout her body yesterday and developed a rash to her left hand today. She denies any rash elsewhere on her body. She denies any difficulty breathing, wheezing. She states that she is unable to take Benadryl as she hallucinates when she takes this medication. She does report taking Claritin this morning for her seasonal allergies. - Related Data Home Medications Medication Instructions Recorded Confirmed Ascorbic Acid [Vitamin C chew] 1,000 mg PO DAILY 01/13/22 12/31/22 Biotin [Biotin Disolve] 5,000 mcg PO DAILY 01/13/22 12/31/22 Pantoprazole [Protonix] 40 mg PO DAILY 01/13/22 12/31/22 Vit No.179/Iron/Folic 1 each PO DAILY 01/13/22 12/31/22 [ Tablet] Loratadine [Claritin] 10 mg PO DAILY 12/24/22 12/31/22 Previous Rx's Medication Instructions Recorded Dicloxacillin [Dynapen] 500 mg PO Q6H 10 Days #40 capsule 10/20/23 Fluconazole [Diflucan] 150 mg PO ONCE #1 tab 10/20/23 Clindamycin [Cleocin] 450 mg PO Q8HR #63 capsule 10/21/23 Permethrin 5% Cream [Elimite] 1 applic TOPICAL ONCE 1 Days each 10/22/23 predniSONE [Deltasone] 40 mg PO DAILY #8 tab 10/22/23 Allergies Allergy/AdvReac Type Severity Reaction Status Date / Time butorphanol [From Stadol] Allergy Hallucinati Verified 10/22/23 14:13 ons diphenhydramine Allergy Hallucinati Verified 10/22/23 14:13 [From Benadryl] ons Review of Systems ROS Statement: Those systems with pertinent positive or pertinent negative responses have been documented in the HPI. ROS Other: All systems not noted in ROS Statement are negative. Past Medical History Past Medical History: GERD/Reflux, Hyperlipidemia Additional Past Medical History / Comment(s): Iron deficiency anemia-required iron transfusions during this , hypoglycemia History of Any Multi-Drug Resistant Organisms: None Reported Past Surgical History: Breast Surgery, Section Additional Past Surgical History / Comment(s): Benign tumor removed from breast, wisdom teeth, mar 2022 Past Anesthesia/Blood Transfusion Reactions: No Reported Reaction Past Psychological History: No Psychological Hx Reported Smoking Status: Never smoker Past Alcohol Use History: None Reported Past Drug Use History: None Reported - Past Family History Father Family Medical History: Hypertension Mother Family Medical History: Cancer Brother(s) Additional Family Medical History / Comment(s): Ulcerative colitis General Exam Limitations: no limitations General appearance: alert, in no apparent distress Head exam: Present: atraumatic, normocephalic, normal inspection Eye exam: Present: normal appearance, PERRL, EOMI. Absent: scleral icterus, conjunctival injection, periorbital swelling ENT exam: Present: normal exam, mucous membranes moist Respiratory exam: Present: normal lung sounds bilaterally. Absent: respiratory distress, wheezes, rales, rhonchi, stridor Cardiovascular Exam: Present: regular rate, normal rhythm, normal heart sounds. Absent: systolic murmur, diastolic murmur, rubs, gallop, clicks Extremities exam: Present: normal inspection, full ROM, normal capillary refill. Absent: tenderness, pedal edema, joint swelling, calf tenderness Neurological exam: Present: alert, oriented X3 Psychiatric exam: Present: normal affect, normal mood Skin exam: Present: warm, dry, erythema (Erythema and scaling between the fingers of the left hand), other. Absent: intact, normal color Course Vital Signs 10/21/23 10/21/23 13:19 16:18 Temperature 99.1 F 98.1 F Pulse Rate 88 83 Respiratory 20 18 Rate Blood Pressure 115/79 92/66 O2 Sat by Pulse 95 95 Oximetry Medical Decision Making - Medical Decision Making Was pt. sent in by a medical professional or institution (, PA, TANK CREWMEMBER, urgent care, hospital, or long-term...) When possible be specific @ -No Did you speak to anyone other than the patient for history (EMS, parent, family, police, friend...)? What history was obtained from this source @ -No Did you review nursing and triage notes (agree or disagree)? Why? @ -I reviewed and agree with nursing and triage notes Were old charts reviewed (outside hosp., previous admission, EMS record, old EKG, old radiological studies, urgent care reports/EKG's, long-term records)? Report findings @ -No old charts were reviewed Differential Diagnosis (chest pain, altered mental status, abdominal pain women, abdominal pain men, vaginal bleeding, weakness, fever, dyspnea, syncope, headache, dizziness, GI bleed, back pain, seizure, CVA, palpatations, mental health, musculoskeletal)? @ -Rash, allergic reaction, urticaria, anaphylaxis, this list is not all inclusive EKG interpreted by me (3pts min.). @ -None X-rays interpreted by me (1pt min.). @ -None done CT interpreted by me (1pt min.). @ -None done U/S interpreted by me (1pt. min.). @ -None done What testing was considered but not performed or refused? (CT, X-rays, U/S, labs)? Why? @ -None What meds were considered but not given or refused? Why? @ -None Did you discuss the management of the patient with other professionals (professionals i.e. , PA, TANK CREWMEMBER, lab, RT, psych nurse, social work job titles, linux unix system administrator, teacher, credit officer, heel caser)? Give summary @ -No Was smoking cessation discussed for >3mins.? @ -No Was critical care preformed (if so, how long)? @ -No Were there social determinants of health that impacted care today? How? (Homelessness, low income, unemployed, alcoholism, drug addiction, transportation, low edu. Level, literacy, decrease access to med. care, [facility], rehab)? @ -No Was there de-escalation of care discussed even if they declined (Discuss DNR or withdrawal of care, Hospice)? DNR status @ -No What co-morbidities impacted this encounter? (DM, HTN, Smoking, COPD, CAD, Cancer, CVA, ARF, Chemo, Hep., AIDS, mental health diagnosis, sleep apnea, morbid obesity)? @ -None Was patient admitted / discharged? Hospital course, mention meds given and route, prescriptions, significant lab abnormalities, going to OR and other pertinent info. @ -Discharge. Patient presented to the emergency department for evaluation of rash and itching. She believes she is having allergic reaction to an antibiotic that she started yesterday. Patient has itching and scaling to the area between the fingers of the left hand otherwise no visible rash. Patient was given a dose of Solu-Medrol, Pepcid, Claritin while in the emergency department. Patient will be discharged home with prescription for a new antibiotic. Patient is understanding agreeable with plan for discharge. Patient stable at time of discharge. Case discussed with Dr. Joe. Undiagnosed new problem with uncertain prognosis? @ -No Drug Therapy requiring intensive monitoring for toxicity (Heparin, Nitro, Insulin, Cardizem)? @ -No Were any procedures done? @ -No Diagnosis/symptom? @ -Allergic reaction Acute, or Chronic, or Acute on Chronic? @ -Acute Uncomplicated (without systemic symptoms) or Complicated (systemic symptoms)? @ -Uncomplicated Side effects of treatment? @ -No Exacerbation, Progression, or Severe Exacerbation? @ -No Poses a threat to life or bodily function? How? (Chest pain, [place], [place], pneumonia, PE, COPD, DKA, ARF, appy, cholecystitis, CVA, Diverticulitis, Homicidal, Suicidal, threat to staff... and all critical care pts) @ -No Disposition Clinical Impression: Allergic reaction Disposition: HOME SELF-CARE Condition: Stable Instructions (If sedation given, give patient instructions): Acute Rash (ED) Additional Instructions: Please pickling drum operator new antibiotic and take to completion. Follow up with your primary care provider. Return to the emergency department for new or worsening symptoms. Prescriptions: Clindamycin [Cleocin] 450 mg PO Q8HR #63 capsule Is patient prescribed a controlled substance at d/c from ED?: No Referrals: Reji Apple MD [Primary Care Provider] - 1-2 days
[2023-10-21 16:19] VITALS: BP 92/66; PULSE 83; RESP 18; TEMP 98.1
== END 2023-10-21 16:19 | disposition home or self-care (01) ==
LOC: EC 13:18
DX: T78.40XA Allergy, unspecified, initial encounter (principal); Z88.8 Allergy status to other drugs, medicaments and biological substances; Z88.5 Allergy status to narcotic agent
CPT/HCPCS: 99283; 96372; J2919

== ENCOUNTER 2023-10-22 14:05 | Emergency (ER) | payer BC ==
[2023-10-22 14:14] VITALS: RESP 18; TEMP 97.7
[2023-10-22] MEDS: methylPREDNISolone SOD SUCCI 125 MG/2 ML VIAL IM ONE (15:25)
--- NOTE | 2023-10-22 15:32 | ED ---
General Adult HPI - General Chief complaint: Skin/Abscess/Foreign Body Stated complaint: rash Time Seen by Provider: 10/22/23 14:20 Source: patient, RN notes reviewed, old records reviewed Mode of arrival: ambulatory Limitations: no limitations - History of Present Illness Initial comments: 38-year-old female who has come to the ER 3 days in a row. For states she was diagnosed with mastitis. Patient was put on amoxicillin she came back with a rash and the thought it was secondary to the rash a switch to clindamycin. Patient comes in today complaining of bilateral rashes on her hands between her webs of her fingers and on her soles of her feet as well as her private area. Patient states is extremely itchy. Patient states the steroid yesterday did not seem to help much. Patient also states yesterday she had a fever her kids also had a little bit of rash on the soles of her feet and she also complains of a sore throat. - Related Data Home Medications Medication Instructions Recorded Confirmed Ascorbic Acid [Vitamin C chew] 1,000 mg PO DAILY 01/13/22 12/31/22 Biotin [Biotin Disolve] 5,000 mcg PO DAILY 01/13/22 12/31/22 Pantoprazole [Protonix] 40 mg PO DAILY 01/13/22 12/31/22 Vit No.179/Iron/Folic 1 each PO DAILY 01/13/22 12/31/22 [ Tablet] Loratadine [Claritin] 10 mg PO DAILY 12/24/22 12/31/22 Previous Rx's Medication Instructions Recorded Dicloxacillin [Dynapen] 500 mg PO Q6H 10 Days #40 capsule 10/20/23 Fluconazole [Diflucan] 150 mg PO ONCE #1 tab 10/20/23 Clindamycin [Cleocin] 450 mg PO Q8HR #63 capsule 10/21/23 Permethrin 5% Cream [Elimite] 1 applic TOPICAL ONCE 1 Days each 10/22/23 predniSONE [Deltasone] 40 mg PO DAILY #8 tab 10/22/23 Allergies Allergy/AdvReac Type Severity Reaction Status Date / Time butorphanol [From Stadol] Allergy Hallucinati Verified 10/22/23 14:13 ons diphenhydramine Allergy Hallucinati Verified 10/22/23 14:13 [From Benadryl] ons Review of Systems ROS Statement: Those systems with pertinent positive or pertinent negative responses have been documented in the HPI. ROS Other: All systems not noted in ROS Statement are negative. Past Medical History Past Medical History: GERD/Reflux, Hyperlipidemia Additional Past Medical History / Comment(s): Iron deficiency anemia-required iron transfusions during this , hypoglycemia History of Any Multi-Drug Resistant Organisms: None Reported Past Surgical History: Breast Surgery, Section Additional Past Surgical History / Comment(s): Benign tumor removed from breast, wisdom teeth, mar 2022 Past Anesthesia/Blood Transfusion Reactions: No Reported Reaction Past Psychological History: No Psychological Hx Reported Smoking Status: Never smoker Past Alcohol Use History: None Reported Past Drug Use History: None Reported - Past Family History Father Family Medical History: Hypertension Mother Family Medical History: Cancer Brother(s) Additional Family Medical History / Comment(s): Ulcerative colitis General Exam - General Exam Comments Initial Comments: GENERAL: Patient is well-developed and well-nourished. Patient is nontoxic and well- hydrated and is in mild distress. ENT: Neck is soft and supple. No significant lymphadenopathy is noted. Oropharynx is clear. Moist mucous membranes. Patient has some small punctate lesions on the back of her pharynx EYES: The sclera were anicteric and conjunctiva were pink and moist. Extraocular movements were intact and pupils were equal round and reactive to light. Eyelids were unremarkable. SKIN: Patient has lesions that are excoriated from itching on her fingers the webs of the fingers the soles of the feet and wrists. NEUROLOGIC: Patient is alert and oriented x3. Cranial nerves II through XII are grossly intact. Motor and sensory are also intact. Normal speech, volume and content. Symmetrical smile. MUSCULOSKELETAL: Normal extremities with adequate strength and full range of motion. LYMPHATICS: No significant lymphadenopathy is noted PSYCHIATRIC: Normal psychiatric evaluation. Limitations: no limitations Course Vital Signs 10/22/23 14:11 Temperature 97.7 F Pulse Rate 69 Respiratory 18 Rate Blood Pressure 107/65 O2 Sat by Pulse 96 Oximetry Medical Decision Making - Medical Decision Making Was pt. sent in by a medical professional or institution (, PA, DRUG DEPARTMENT WORKER, urgent care, hospital, or jail...) When possible be specific @ -No Did you speak to anyone other than the patient for history (EMS, parent, family, police, friend...)? What history was obtained from this source @ -No Did you review nursing and triage notes (agree or disagree)? Why? @ -I reviewed and agree with nursing and triage notes Were old charts reviewed (outside hosp., previous admission, EMS record, old EKG, old radiological studies, urgent care reports/EKG's, jail records)? Report findings @ -No old charts were reviewed Differential Diagnosis? @ -Wtif-tsal-vnl-mouth disease, scabies, erythema multiforme, [place] spotted fever, allergic reaction this is not an all-inclusive list EKG interpreted by me (3pts min.). @ -As above X-rays interpreted by me (1pt min.). @ -None done CT interpreted by me (1pt min.). @ -None done U/S interpreted by me (1pt. min.). @ -None done What testing was considered but not performed or refused? (CT, X-rays, U/S, labs)? Why? @ -None What meds were considered but not given or refused? Why? @ -None Did you discuss the management of the patient with other professionals (professionals i.e. , PA, DRUG DEPARTMENT WORKER, lab, RT, psych nurse, social welfare research worker, enterprise analyst, teacher, small business banking officer, family preservation caseworker)? Give summary @ -No Was smoking cessation discussed for >3mins.? @ -No Was critical care preformed (if so, how long)? @ -No Were there social determinants of health that impacted care today? How? (Homelessness, low income, unemployed, alcoholism, drug addiction, transportation, low edu. Level, literacy, decrease access to med. care, long term, rehab)? @ -No Was there de-escalation of care discussed even if they declined (Discuss DNR or withdrawal of care, Hospice)? DNR status @ -No What co-morbidities impacted this encounter? (DM, HTN, Smoking, COPD, CAD, Cancer, CVA, ARF, Chemo, Hep., AIDS, mental health diagnosis, sleep apnea, morbid obesity)? @ -None Was patient admitted / discharged? Hospital course, mention meds given and route, prescriptions, significant lab abnormalities, going to OR and other pertinent info. @ -Patient received steroids in the emergency department. Patient will be treated with permethrin in case it is scabies and be sent home on steroids. Patient is instructed if the symptoms do not resolve she is to follow-up with dermatology Undiagnosed new problem with uncertain prognosis? @ -No Drug Therapy requiring intensive monitoring for toxicity (Heparin, Nitro, Insulin, Cardizem)? @ -No Were any procedures done? @ -No Diagnosis/symptom? @ -Coxsackie Acute, or Chronic, or Acute on Chronic? @ -Acute Uncomplicated (without systemic symptoms) or Complicated (systemic symptoms)? @ -Uncomplicated Side effects of treatment? @ -No Exacerbation, Progression, or Severe Exacerbation? @ -No Poses a threat to life or bodily function? How? (Chest pain, [place], MA, pneumonia, PE, COPD, DKA, ARF, appy, cholecystitis, CVA, Diverticulitis, Homicidal, Suicidal, threat to staff... and all critical care pts) @ -No Disposition Clinical Impression: Coxsackie viral disease Disposition: HOME SELF-CARE Instructions (If sedation given, give patient instructions): Hand, Foot, and Mouth Disease (ED) Prescriptions: predniSONE [Deltasone] 40 mg PO DAILY #8 tab Permethrin 5% Cream [Elimite] 1 applic TOPICAL ONCE 1 Days each Is patient prescribed a controlled substance at d/c from ED?: No Referrals: Reji Apple MD [Primary Care Provider] - 1-2 days Time of Disposition: 15:34
[2023-10-22 15:48] VITALS: BP 110/72; PULSE 65
== END 2023-10-22 15:47 | disposition home or self-care (01) ==
LOC: EC 14:05
DX: R21 Rash and other nonspecific skin eruption (principal); B34.1 Enterovirus infection, unspecified; Z88.8 Allergy status to other drugs, medicaments and biological substances
CPT/HCPCS: 99282; 96372; J2919

== ENCOUNTER → 2024-02-10 | Outpatient (CLI) | payer BC ==
--- NOTE | 2024-02-15 11:39 | MM ---
Reason for Exam: Screening (asymptomatic). Last mammogram was performed 6 year(s) and 4 month(s) ago. Patient History: Menarche at age 14. First Full-Term at age 20. 2008, Lumpectomy on the Left side. Risk Values: Jennifer 5 year model risk: 0.5%. NCI Lifetime model risk: 8.3%. Prior Study Comparison: 10/12/2017 Bilateral Screening Mammogram, [facility]. Tissue Density: The breasts are heterogeneously dense, which may obscure small masses. Findings: Analyzed By CAD. Right breast: There is no suspicious group of microcalcifications or new suspicious mass. Left breast: There is no suspicious group of microcalcifications or new suspicious mass. Overall Assessment: Negative, BI-RAD 1 Management: Screening Mammogram of both breasts in [address] [facility] will attempt to contact patient to return for supplemental views and ultrasound if indicated. Patient should continue monthly self-breast exams. A clinical breast exam by your physician is recommended on an annual basis. This exam should not preclude additional follow-up of suspicious palpable abnormalities. Note on Jennifre scores and lifetime risk: 1. A Jennifer score greater than 3% is considered moderate risk. If this is the case, consider specialist referral to assess eligibility for a risk reducing agent. 2. If overall lifetime risk for the development of breast cancer is 20% or higher, the patient may qualify for future screening with alternating mammogram and breast MRI. [facility], , 02/15/2024 11:36 AM. Electronically signed and approved by: Brenton Garcia DO
== END | disposition home or self-care (01) ==
LOC: RADMAMWWP 11:31
PROVIDERS: ATTEND Obstetrics & Gynecology
DX: Z12.31 Encounter for screening mammogram for malignant neoplasm of breast (principal); R92.333 Mammographic heterogeneous density, bilateral breasts
CPT/HCPCS: 77063; 77067